=== PATIENT | male | born 1970 | race Caucasian/White ===

== ENCOUNTER 2016-12-15 04:06 | Emergency (ER) | payer OTHER ==
[2016-12-15 04:13] VITALS: RESP 18; TEMP 97.9
[2016-12-15] MEDS ORDERED: cloNIDine HCL 0.1 MG TAB PO STA (04:27)
[2016-12-15] MEDS ORDERED: PROMETHAZINE 25 MG TAB PO STA (04:27)
[2016-12-15 04:36] VITALS: BP 140/80; PULSE 91
--- NOTE | 2016-12-15 05:20 | ED ---
Anxiety HPI - General Chief Complaint: Anxiety Stated Complaint: Detox Time Seen by Provider: 12/15/16 04:17 Source: patient Mode of arrival: ambulatory - History of Present Illness Initial Comments: This patient is a 46-year-old man who presents requesting help for withdrawal symptoms and anxiety. The patient states that she has had multiple surgeries on his spine including back and neck. He has been on long-term opioid medications. He had currently been taking methadone about 90 mg per day in addition other analgesics, and he states that his long-term prescriber has stopped giving him these medications. The patient states that he is feeling very anxious, he is having nausea and vomiting, he is having hot and cold sensations and like he is coming out of his skin. MD Complaint: anxiety Onset/Timin -: days(s) Symptoms: extremity numbness/tingling, perioral numbness/tingling, dry mouth, muscle cramps Place: home Previous History of Same: Yes Severity: severe Quality: constant Provoking factors: medication change Improves With: nothing Worsens With: nothing - Related Data Home Medications: Previous Rx's Medication Instructions Recorded ALPRAZolam [Xanax] 1 mg PO BID #6 tab 12/26/16 Allergies/Adverse Reactions: Allergies Allergy/AdvReac Type Severity Reaction Status Date / Time codeine Allergy Rash/Hives Verified 12/26/16 11:13 Review of Systems ROS Statement: Those systems with pertinent positive or pertinent negative responses have been documented in the HPI. ROS Other: All systems not noted in ROS Statement are negative. Constitutional: Reports: chills, night sweats Respiratory: Denies: cough, dyspnea Cardiovascular: Denies: chest pain, palpitations Gastrointestinal: Reports: abdominal pain, nausea, vomiting Genitourinary: Denies: dysuria, hematuria Musculoskeletal: Reports: back pain Skin: Denies: rash Neurological: Denies: headache, weakness, numbness Psychiatric: Reports: anxiety Past Medical History Past Medical History: No Reported History History of Any Multi-Drug Resistant Organisms: None Reported Past Surgical History: Back Surgery Additional Past Surgical History / Comment(s): Neck Surgery Past Psychological History: Anxiety Smoking Status: Current every day smoker Past Alcohol Use History: None Reported Past Drug Use History: Marijuana General Exam Limitations: no limitations General appearance: alert, in no apparent distress, anxious Head exam: Present: atraumatic, normocephalic Eye exam: Present: normal appearance. Absent: scleral icterus, conjunctival injection Respiratory exam: Present: normal lung sounds bilaterally. Absent: respiratory distress, wheezes, rales, rhonchi, stridor Cardiovascular Exam: Present: regular rate, normal rhythm, normal heart sounds. Absent: systolic murmur, diastolic murmur, rubs, gallop GI/Abdominal exam: Present: soft. Absent: distended, tenderness, guarding, rebound, mass Extremities exam: Present: normal inspection, normal capillary refill. Absent: pedal edema, calf tenderness Neurological exam: Present: alert, normal gait Psychiatric exam: Present: anxious. Absent: homicidal ideation, suicidal ideation Skin exam: Present: warm, dry, intact, normal color. Absent: rash Course Vital Signs 12/15/16 12/15/16 04:10 04:35 Temperature 97.9 F Pulse Rate 92 91 Respiratory 18 18 Rate Blood Pressure 126/67 140/80 O2 Sat by Pulse 97 96 Oximetry Disposition Clinical Impression: Opioid withdrawal Disposition: HOME SELF-CARE Condition: Fair Instructions: Opioid Withdrawal (ED) Referrals: Kwaku Mcdonald MD [Primary Care Provider] - 1-2 days Rojelio Arevalo MD [REFERRING] - 1-2 days Yas Alicia MD [REFERRING] - 1-2 days Debbie Conroy MD [REFERRING] - 1-2 days Sha Gonzalez MD [STAFF PHYSICIAN] - 1-2 days
[2016-12-15] MEDS ORDERED: LORazepam 2 MG/ML SYRINGE IM STA (05:28)
[2016-12-15] MEDS ORDERED: METHADONE 10 MG TAB PO STA (06:21)
== END 2016-12-15 06:44 | disposition home or self-care (01) ==
LOC: EC 04:06
DX: F11.23 Opioid dependence with withdrawal (principal); F17.200 Nicotine dependence, unspecified, uncomplicated; Z88.5 Allergy status to narcotic agent; Z79.891 Long term (current) use of opiate analgesic
CPT/HCPCS: 99283 ×2; 96372 ×2; J2060; S0109

== ENCOUNTER 2016-12-26 10:35 | Emergency (ER) | payer OTHER ==
[2016-12-26] MEDS ORDERED: KETOROLAC 60 MG/2 ML VIAL IM STA (11:36)
--- NOTE | 2016-12-26 11:41 | ED ---
General Adult HPI - General Chief complaint: Anxiety Stated complaint: anxiety Time Seen by Provider: 12/26/16 11:23 Source: patient, RN notes reviewed Mode of arrival: ambulatory Limitations: no limitations - History of Present Illness Initial comments: Patient is a 46-year-old male who presents emergency room today with chief complaint of "anxiety" over the last 2 days. He does admit that he is trying to get off opiates. He states he was given Suboxone by the family doctor. He states he took his last pill 2 days ago. He states that over the last 2 days been having what he feels like restless extremities. States feels like he has to move his hands. He does admit that he's had some numbness tingling to his hands and his feet. This feels that he constantly has to move. States had a difficult time sleeping. States tried some gmtk-[id number]-afnolkg sleep aids with little relief. Patient denies any other complaints or symptoms. Patient denies any recent fever, chills, shortness of breath, chest pain, back pain, abdominal pain, nausea or vomiting, dysuria or hematuria, constipation or diarrhea, headaches or visual changes, or any other complaints. - Related Data Previous Rx's Medication Instructions Recorded ALPRAZolam [Xanax] 1 mg PO BID #6 tab 12/26/16 Allergies Allergy/AdvReac Type Severity Reaction Status Date / Time codeine Allergy Rash/Hives Verified 12/26/16 11:13 Review of Systems ROS Statement: Those systems with pertinent positive or pertinent negative responses have been documented in the HPI. ROS Other: All systems not noted in ROS Statement are negative. Past Medical History Past Medical History: No Reported History Additional Past Medical History / Comment(s): opiate abuse History of Any Multi-Drug Resistant Organisms: None Reported Past Surgical History: Back Surgery Additional Past Surgical History / Comment(s): Neck Surgery Past Psychological History: Anxiety Smoking Status: Current every day smoker Past Alcohol Use History: None Reported Past Drug Use History: Marijuana, Opiates, Prescription Drug Abuse General Exam - General Exam Comments Initial Comments: General: The patient is awake and alert, in no distress, and does not appear acutely ill. Eye: Pupils are equal, round and reactive to light, extra-ocular movements are intact. No nystagmus. There is normal conjunctiva bilaterally. No signs of icterus. Ears, nose, mouth and throat: There are moist mucous membranes and no oral lesions. Neck: The neck is supple, there is no tenderness or JVD. Cardiovascular: There is a regular rate and rhythm. No murmur, rub or gallop is appreciated. Respiratory: Lungs are clear to auscultation, respirations are non-labored, breath sounds are equal. No wheezes, stridor, rales, or rhonchi. Gastrointestinal: [Soft, non-distended, non-tender abdomen without masses or organomegaly noted. There is no rebound or guarding present. No CVA tenderness. Bowel sounds are unremarkable.] Musculoskeletal: Normal ROM, no tenderness. Strength 5/5. Sensation intact. Pulses equal bilaterally 2+. Neurological: A&O x 3. CN II-XII intact, There are no obvious motor or sensory deficits. Coordination appears grossly intact. Speech is normal. Skin: Skin is warm and dry and no rashes or lesions are noted. Psychiatric: Cooperative, appropriate mood & affect, normal judgment. Limitations: no limitations Course Vital Signs 12/26/16 10:42 Temperature 97.4 F L Pulse Rate 94 Respiratory 20 Rate Blood Pressure 143/76 O2 Sat by Pulse 99 Oximetry Medical Decision Making - Medical Decision Making patient evaluated here in the emergency room shows no signs of distress. Normal neurological exam. Sensations intact to light touch. He does admit some numbness tingling to his hands and his feet at times. He states feels like they're very restless and sent to sleep. Was discussed with patient about using [id number]-ayqdlmn sleep aids. Was discussed with patient about possible opiate withdrawal at this point. Advised that he needs follow-up with his family doctor further evaluation and possible continuation of his Suboxone. eyes patient that we do not write for Suboxone in the ER. Patient will be given a short prescription of Xanax for the next 3 days along with Catapres for his symptoms. Advised to follow-up with family doctor return if any symptoms increase or worsen or for any other concerns. He states understanding and is in agreement. Disposition Clinical Impression: Opioid withdrawal Disposition: HOME SELF-CARE Condition: Good Instructions: Opioid Withdrawal (ED) Additional Instructions: Please use medications as prescribed and follow-up family doctor in the next 1- 2 days. please use [id number]-[id number] melatonin as discussed. Please return here to emergency room if any symptoms increase or worsen or for any other concerns. Prescriptions: ALPRAZolam [Xanax] 1 mg PO BID #6 tab Referrals: Kwaku Mcdonald MD [Primary Care Provider] - 1-2 days Time of Disposition: 11:39
[2016-12-26 11:48] VITALS: BP 117/73; PULSE 93; RESP 16; TEMP 97.1
[2016-12-26] MEDS ORDERED: cloNIDine 0.2 MG/24HR PATCH 1 PATCH PATCH TRANSDERM ONE (12:00)
[2016-12-26] MEDS ORDERED: cloNIDine 0.2 MG/24HR PATCH 1 PATCH PATCH TRANSDERM SCH (12:00)
== END 2016-12-26 12:11 | disposition home or self-care (01) ==
LOC: EC 10:35
DX: F11.23 Opioid dependence with withdrawal (principal); F41.9 Anxiety disorder, unspecified; R20.0 Anesthesia of skin; F17.200 Nicotine dependence, unspecified, uncomplicated; Z88.5 Allergy status to narcotic agent
CPT/HCPCS: 99283; 96372; J1885

== ENCOUNTER → 2017-06-12 | Outpatient (CLI) | payer OTHER ==
[2017-06-12 10:25] LABS: Basophils # (A) 0.1 k/uL (0-0.2); Basophils % (A) 1 %; CH 32.6; CHCM 35.5; Eosinophils # (A) 0.5 k/uL (0-0.7); Eosinophils % (A) 5 %; HCT 43.8 % (39.0-53.0); HDW 2.82; HGB 14.8 gm/dL (13.0-17.5); Luc # (Auto) 0.12; Luc % (Auto) 1; Lymphocytes # (A) 3.6 k/uL (1.0-4.8); Lymphocytes % (A) 35 %; MCH 31.3 pg (25.0-35.0); MCHC 33.9 g/dL (31.0-37.0); MCV 92.3 fL (80.0-100.0); Mean Platelet Volume 7.1; Monocytes # (A) 0.5 k/uL (0-1.0); Monocytes % (A) 4 %; Neutrophils # (A) 5.5 k/uL (1.3-7.7); Neutrophils % (A) 54 %; RBC 4.74 m/uL (4.30-5.90); RDW 12.6 % (11.5-15.5); WBC 10.3 k/uL (3.8-10.6); WBC (Perox) 10.66
[2017-06-12 10:33] LABS: Prothrombin Time 10.4 sec (9.0-12.0)
[2017-06-12 10:40] LABS: Bilirubin, Delta 0.2 mg/dL (0.0-0.2); Total Bilirubin 0.4 mg/dL (0.2-1.3); Total Protein 6.9 g/dL (6.3-8.2)
--- NOTE | 2017-06-12 10:52 | US ---
EXAMINATION TYPE: US liver DATE OF EXAM: 06/12/2017 COMPARISON: NONE CLINICAL HISTORY: 47-year-old male B18.2 Chronic Viral Hepatitis C. Patient going through testing to see if he can start Hep meds to remove disease. TECHNIQUE: Multiple sonographic images of the right upper quadrant are obtained. FINDINGS: Liver Length: 16.7 cm Gallbladder Wall: 0.2 cm CBD: 0.7 cm Right Kidney: 10.1 x 5.2 x 5.7 cm Pancreas: limited views due to bowel gas Liver: Upper limits of normal in size, increased echogenicity. Difficult to penetrate. No focal lesi on is identified. Gallbladder: 5 mm, nonmobile, echogenic foci may represent a polyp versus small adherent stone. No a bnormal distention, wall thickening, or pericholecystic fluid. Evidence for sonographic Tolbert's sign: no CBD: Mildly dilated Right Kidney: No hydronephrosis IMPRESSION: 1. Attenuating liver may reflect underlying nonspecific hepatocellular disease. No focal lesion is se en. 2. A 5 mm nonmobile mural-based focus along the gallbladder wall could represent an adherent stone or gallbladder wall polyp. 6 month follow-up ultrasound to reassess. 3. The bile duct is mildly dilated. Correlate with alkaline phosphatase and bilirubin levels to exclu de the possibility of biliary obstruction.
[2017-06-15 14:10] LABS: HCV Qualitative Result DETECTED (Not detected)
== END | disposition home or self-care (01) ==
LOC: RADUSWWP 09:41
PROVIDERS: ATTEND Internal Medicine Gastroenterology
DX: K83.8 Other specified diseases of biliary tract (principal); R93.2 Abnormal findings on diagnostic imaging of liver and biliary tract
CPT/HCPCS: 36415; 76705; 80076; 82105; 85025; 85610; 87522

== ENCOUNTER → 2017-10-22 | Outpatient (CLI) | payer OTHER ==
--- NOTE | 2017-10-22 15:56 | CT ---
EXAMINATION TYPE: CT chest wo con DATE OF EXAM: 10/22/2017 COMPARISON: NONE HISTORY: Lung mass. CT DLP: 204 mGycm. Automated Exposure Control for Dose Reduction was Utilized. TECHNIQUE: CT scan of the thorax is performed without IV contrast. Supine and prone imaging was perf ormed per the high-resolution chest CT protocol. FINDINGS: Evaluation for pulmonary nodules is limited given the high-resolution CT protocol, better s uited for the evaluation of interstitial lung disease. LUNGS: No evidence of interlobular septal thickening, bronchiectasis, emphysema, gross evidence of pu lmonary mass, focal consolidation, honeycombing, pleural thickening, or groundglass opacity is seen. There is no pleural effusion or pneumothorax seen. The tracheobronchial tree is patent. MEDIASTINUM: Lack of IV contrast is noted to limit evaluation for mediastinal and especially hilar ad enopathy. There are no definitive greater than 1 cm hilar or mediastinal lymph nodes. No cardiomega ly or pericardial effusion is seen. Moderate coronary calcifications are seen of the left main and le ft anterior descending coronary artery. OTHER: Osseous structures are grossly intact given the limitation of noncontiguous slices. There is p artial visualization of an anterior cervical fusion device. IMPRESSION: 1. No evidence of interstitial lung disease. 2. No evidence of pulmonary mass, however evaluation for pulmonary nodules limited given the high res olution chest CT protocol with noncontiguous slices. 3. Moderate coronary artery calcifications, marker for coronary artery disease.
== END | disposition home or self-care (01) ==
LOC: RADCTMAIN 14:26
PROVIDERS: ATTEND Internal Medicine
DX: I25.10 Atherosclerotic heart disease of native coronary artery without angina pectoris (principal)
CPT/HCPCS: 71250

== ENCOUNTER → 2019-08-25 | Outpatient (CLI) | payer OTHER ==
[2019-08-25 11:13] LABS: Basophils # (A) 0.1 k/uL (0-0.2); Basophils % (A) 1 %; Eosinophils # (A) 0.2 k/uL (0-0.7); Eosinophils % (A) 3 %; HCT 47.9 % (39.0-53.0); HGB 15.8 gm/dL (13.0-17.5); Lymphocytes # (A) 3.2 k/uL (1.0-4.8); Lymphocytes % (A) 38 %; MCH 31.5 pg (25.0-35.0); MCHC 32.9 g/dL (31.0-37.0); MCV 95.5 fL (80.0-100.0); Monocytes # (A) 0.4 k/uL (0-1.0); Monocytes % (A) 5 %; Neutrophils # (A) 4.5 k/uL (1.3-7.7); Neutrophils % (A) 53 %; Platelet Count 201 k/uL (150-450); RBC 5.01 m/uL (4.30-5.90); RDW 12.3 % (11.5-15.5); WBC 8.6 k/uL (3.8-10.6)
[2019-08-25 17:17] LABS: Alpha Fetoprotein, Tumor Mkr 6.9 ng/mL (0.0-7.9)
[2019-08-25 17:50] LABS: Albumin 4.5 g/dL (3.80-4.90); Albumin/Globulin Ratio 2.05 (1.60-3.17); Bilirubin, Conjugated 0.2 mg/dL (0.20-0.40); Bilirubin,Unconjugated 0.4 mg/dL; Globulin 2.2 g/dL (1.6-3.3); Total Bilirubin 0.6 mg/dL (0.2-1.2); Total Protein 6.7 g/dL (6.2-8.2)
[2019-08-25 17:51] LABS: African American GFR (CKD) 119.9 (60.0-200.0); Non-African American GFR(CKD) 103.4 (60.0-200.0)
[2019-08-25 18:06] LABS: Hepatitis A Antibody IgM Non-Reactive (Non-Reactive); Hepatitis B Core IgM Non-Reactive (Non-Reactive); Hepatitis B Surface Antigen Non-Reactive (Non-Reactive); Hepatitis C IgG Antibody Reactive (Non-Reactive)
== END | disposition home or self-care (01) ==
LOC: LABWHC1 10:45
PROVIDERS: ATTEND Physician Assistant
DX: B18.2 Chronic viral hepatitis C (principal)
CPT/HCPCS: 36415; 80074; 80076; 82105; 82565; 85025; 85610; 87522

== ENCOUNTER → 2019-08-25 | Outpatient (CLI) | payer OTHER ==
--- NOTE | 2019-08-25 10:11 | US ---
EXAMINATION TYPE: US liver DATE OF EXAM: 08/25/2019 COMPARISON: 06/12/2017 CLINICAL HISTORY: B18.2 Chronic viral hepatitis C. Chronic Hep C EXAM MEASUREMENTS: Liver Length: 17.3 cm Gallbladder Wall: 0.2 cm CBD: 0.5 cm Right Kidney: 10.0 x 4.9 x 5.9 cm Pancreas: Limited by overlying bowel gas Liver: Attenuating, heterogeneous Gallbladder: wnl, fold near neck Evidence for sonographic Tolbert's sign: No CBD: wnl Right Kidney: wnl IMPRESSION: 1. Heterogeneous pattern to the liver is nonspecific can be seen with hepatic steatosis, hepatocellul ar diffuse disease or hepatitis
== END | disposition home or self-care (01) ==
LOC: RADUSMAIN 08:57
PROVIDERS: ATTEND Internal Medicine Gastroenterology
DX: B18.2 Chronic viral hepatitis C (principal)
CPT/HCPCS: 76705

== ENCOUNTER → 2020-03-22 | Outpatient (CLI) | payer OTHER ==
--- NOTE | 2020-03-22 16:08 | US ---
EXAMINATION TYPE: US carotid duplex BILAT DATE OF EXAM: 03/22/2020 COMPARISON: NONE CLINICAL HISTORY: R09.89 Other specified symptoms and signs involvin. Right neck pain EXAM MEASUREMENTS: RIGHT: Peak Systolic Velocity (PSV) cm/sec ----- Right CCA: 75.0 ----- Right ICA: 104.0 ----- Right ECA: 104.0 ICA/CCA ratio: 1.4 RIGHT: End Diastole cm/sec ----- Right CCA: 25.6 ----- Right ICA: 51.7 ----- Right ECA: 16.9 LEFT: Peak Systolic Velocity (PSV) cm/sec ----- Left CCA: 83.3 ----- Left ICA: 91.9 ----- Left ECA: 111.3 ICA/CCA ratio: 1.1 LEFT: End Diastole cm/sec ----- Left CCA: 30.0 ----- Left ICA: 35.4 ----- Left ECA: 17.6 VERTEBRALS (direction of flow): Right Vertebral: Antegrade Left Vertebral: Antegrade Rhythm: Normal Minimal amount of plaque visualized, greater on the left. No elevated velocities IMPRESSION: No significant flow-limiting stenosis. Criteria for Assigning % of Stenosis / Diameter reduction (Estimation based on the indirect measurements of the internal carotid artery velocities (ICA PSV). 1. Normal (no stenosis)=ICA PSV < 125 cm/s: ratio < 2.0: ICA EDV<40 cm/s. 2. Less than 50% stenosis=ICA PSV < 125 cm/s: ratio < 2.0: ICA EDV<40 cm/s. 3. 50 to 69% stenosis=ICA PSV of 125 to 230 cm/s: ration 2.0 ? 4.0: ICA EDV 40-100 cm/s. 4. Greater than 70% stenosis to near occlusion= ICA PSV > 230 cm/s: ratio > 4.0: ICA EDV > 100 cm/s. 5. Near occlusion= ICA PSV velocities may be low or undetectable: variable ratio and ICA EDV. 6. Total occlusion=unable to detect flow.
== END | disposition home or self-care (01) ==
LOC: RADUSWWP 14:19
PROVIDERS: ATTEND Internal Medicine
DX: R09.89 Other specified symptoms and signs involving the circulatory and respiratory systems (principal)
CPT/HCPCS: 93880

== ENCOUNTER → 2020-03-22 | Outpatient (CLI) | payer OTHER ==
[2020-03-22 15:41] LABS: Basophils % (A) 0 %; Eosinophils # (A) 0.2 k/uL (0-0.7); Eosinophils % (A) 2 %; HCT 40.2 % (39.0-53.0); HGB 13.3 gm/dL (13.0-17.5); Lymphocytes # (A) 3.1 k/uL (1.0-4.8); Lymphocytes % (A) 39 %; MCH 31.3 pg (25.0-35.0); MCHC 33.1 g/dL (31.0-37.0); MCV 94.8 fL (80.0-100.0); Mean Platelet Volume 7.5; Monocytes # (A) 0.4 k/uL (0-1.0); Monocytes % (A) 5 %; Neutrophils # (A) 4.1 k/uL (1.3-7.7); Neutrophils % (A) 52 %; Platelet Count 186 k/uL (150-450); RBC 4.24 m/uL (4.30-5.90); RDW 12.5 % (11.5-15.5)
[2020-03-23 01:39] LABS: Albumin 4.2 g/dL (3.80-4.90); Albumin/Globulin Ratio 1.91 (1.60-3.17); Bilirubin, Conjugated 0.2 mg/dL (0.20-0.40); Bilirubin,Unconjugated 0.4 mg/dL; Globulin 2.2 g/dL (1.6-3.3); Total Bilirubin 0.6 mg/dL (0.2-1.2); Total Protein 6.4 g/dL (6.2-8.2)
[2020-03-23 16:19] LABS: HCV Qualitative Result DETECTED (Not detected); HCV Quant Log <1.08 (<1.08); HCV Quantitative Result <12 IU/mL (<12)
== END | disposition home or self-care (01) ==
LOC: LABWHC1 14:39
PROVIDERS: ATTEND Physician Assistant
DX: B18.2 Chronic viral hepatitis C (principal)
CPT/HCPCS: 36415; 80076; 85025; 87522

== ENCOUNTER → 2022-01-27 | Outpatient (CLI) | payer OTHER ==
--- NOTE | 2022-01-27 09:52 | XR ---
Right elbow HISTORY: R 50, pain 3 views of the right elbow Bone mineralization, joint spaces, alignment maintained. No evident elbow joint effusion. No fracture or dislocation. IMPRESSION: No significant abnormality is evident. Elbow MRI may be of benefit.
--- NOTE | 2022-01-27 10:02 | XR ---
Right shoulder HISTORY: R 50 3 views of the right shoulder There is arthropathy at the acromioclavicular joint. Distal acromion is slightly downturned. No fract ure or dislocation. Bone mineralization and alignment are maintained. Right lung apex as visualized i s normal. IMPRESSION: There is acromioclavicular joint arthropathy change, correlate for possible impingement.
== END | disposition home or self-care (01) ==
LOC: RADXRMAIN 08:35
PROVIDERS: ATTEND Internal Medicine
DX: M19.011 Primary osteoarthritis, right shoulder (principal)

== ENCOUNTER → 2025-01-22 | Outpatient (CLI) | payer OTHER ==
--- NOTE | 2025-01-22 13:34 | CTL ---
EXAMINATION TYPE: CT Low Dose Lung DATE OF EXAM ORDERED: 01/22/2025 COMPARISON: 10/23/2079 CLINICAL INDICATION: Male, 54 years old with history of Z12.2 ENCNTR SCREEN FOR MALIGNANT NEOPLASM OF RESP; H, SMOKER, Lung cancer screening, History of Smoking/tobacco use. TECHNIQUE: Low dose computed tomography scan was performed through the chest at 1 mm thick sections a nd reconstructed images in multiple planes at 1 mm and [address] DLP: 81.[address] CTDI: 2.3 mGy Automated exposure control for dose reduction was used. CT DIAGNOSTIC QUALITY: Satisfactory FINDINGS: There are no suspicious lung masses or nodules. There is no lung consolidation or abnormal interstitial density. There is no pleural effusion or pneumothorax. The great vessels and heart are normal in size. There is no mediastinal, hilar or axillary adenopathy. Limited scanning through the upper abdomen reveals no gross abnormality. There are no focal osseous lesions. IMPRESSION: 1. Lung RADS category 1 negative. Continue routine screening at yearly intervals. 2. No acute cardiopulmonary disease. [facility], , 01/22/2025 1:32 PM
== END | disposition home or self-care (01) ==
LOC: RADCTMAIN 12:56
PROVIDERS: ATTEND Family Medicine
DX: Z12.2 Encounter for screening for malignant neoplasm of respiratory organs (principal); F17.210 Nicotine dependence, cigarettes, uncomplicated
CPT/HCPCS: 71271